=== PATIENT | male | born 1940 | race American Indian/Alaskan Native ===

== ENCOUNTER 2021-09-12 13:18 | Emergency (ER) | payer MEDICARE ==
--- NOTE | 2021-09-12 14:43 | Emergency Department Report ---
Blank Doc - Documentation Documentation: 80-year-old male that presents with flank pain and unable to have bowel and ur inary symptoms. 1- This is a initial triage assessment/medical screening only. Full assessment and work-up will be completed once the patient is in proper hospital gown, ED bed and in a private room setting. This initial assessment/diagnostic orders/clinical plan/ treatment(s) is/are subject to change based on pt's health status, clinical progression and re-assessment by fellow clinical providers in the ED. Further treatment and workup at subsequent clinical providers discretion. Patient/guardians urged not to elope from ED as their condition may be serious if not clinically assessed and managed. 2-labs 3-UA The patient was evaluated in the emergency department for symptoms described in the history of present illness. He/she was evaluated in the context of the global COVID-19 pandemic, which necessitated consideration that the patient might be at risk for infection with the virus that causes COVID-19. Institutional protocols and algorithms that pertain to the evaluation of patie nts at risk for COVID-19 are in a state of rapid change based on information released by regulatory bodies including the CDC and federal and state organizations. These policies and algorithms were followed during the patient's care in the emergency department. Please note that these policies, procedures and recommendations changed on a rapid basis.
[2021-09-12 15:26] LABS: Basophils % (Auto) 0.3 % (0.0-1.8); Eosinophils % (Auto) 0.3 % (0.0-4.3); Hematocrit 43.8 % (35.5-45.6); Hemoglobin 13.8 gm/dl (11.8-15.2); Lymphocytes # (Auto) 1.3 K/mm3 (1.2-5.4); Lymphocytes % (Auto) 22.6 % (13.4-35.0); Mean Corpuscular HGB Conc 32 % (32-34); Mean Corpuscular Volume 77 fl (84-94); Monocytes # (Auto) 0.4 K/mm3 (0.0-0.8); Monocytes % (Auto) 7.7 % (0.0-7.3); Platelet Count 120 K/mm3 (140-440); Red Blood Count 5.66 M/mm3 (3.65-5.03); Red Cell Distribution Width 15.2 % (13.2-15.2)
[2021-09-12 15:49] LABS: Alanine Aminotransferase 25 units/L (7-56); Albumin 4.2 g/dL (3.9-5); BUN/Creatinine Ratio 12; Blood Urea Nitrogen 16 mg/dL (9-20); Calcium 9.6 mg/dL (8.4-10.2); Hemolysis Index 5
--- NOTE | 2021-09-12 15:50 | XRay Report ---
ABDOMEN 2 VIEW(S) INDICATION / CLINICAL INFORMATION: abdominal pain, no bm. COMPARISON: None available. FINDINGS: TUBES / LINES: None. BOWEL GAS PATTERN: Moderate distal colonic stool burden with nonobstructive bowel gas pattern. FREE AIR / EXTRALUMINAL GAS: None seen. ADDITIONAL FINDINGS: No significant additional findings. IMPRESSION: 1. Findings most suggestive of constipation. Signer Name: Kulwinder Mclean MD Signed: 09/12/2021 3:45 PM Workstation Name: [id number]
[2021-09-12] MEDS ORDERED: MAGNESIUM CITRATE 300 ML ORAL LIQD PO ONE (15:55)
[2021-09-12 16:00] LABS: Bilirubin,Urine Negative (Negative); Blood,Urine Trace (Negative); Color,Urine Yellow (Yellow); Mucus,Urine FEW /HPF
[2021-09-12 16:01] LABS: PH,Urine 6.5 (5.0-7.0); Urobilinogen,Urine < 2.0 mg/dL (<2.0)
[2021-09-12] MEDS ORDERED: INSULIN REGULAR, HUMAN 100 UNITS/1 ML IV ONE (16:28)
[2021-09-12] MEDS ORDERED: SODIUM CHLORIDE 0.9% 1000 ML 1,000 ML IV ONE (16:28)
--- NOTE | 2021-09-12 18:46 | Emergency Department Report ---
ED Abdominal Pain HPI - General Chief Complaint: Urogenital-Male Stated Complaint: HAVING PROBLEMS DEFECTIING Time Seen by Provider: 09/12/21 14:41 Source: patient Mode of arrival: Ambulatory Limitations: No Limitations - History of Present Illness Initial Comments: 80-year-old black female with a past medical history of hypertension and diabetes presents emergency department for evaluation of lower abdominal pain. He states that he has not been able to have a bowel movement for 2 days which is abnormal for him. He denies fever, nausea, vomiting. MD Complaint: abdominal pain -: Gradual, days(s) (2) Radiation: none Migration to: no migration Severity scale (0 -10): 5 Quality: aching Consistency: constant Associated Symptoms: constipation. denies: nausea, vomiting, fever, chills, dysuria, hematemesis, hematochezia, melena, hematuria, anorexia, syncope - Related Data Allergies Allergy/AdvReac Type Severity Reaction Status Date / Time No Known Allergies Allergy Unverified 06/13/14 11:14 ED Review of Systems ROS: Stated complaint: HAVING PROBLEMS DEFECTIING Other details as noted in HPI Comment: All other systems reviewed and negative Constitutional: denies: chills, fever, malaise, weakness Respiratory: denies: shortness of breath Cardiovascular: denies: chest pain, palpitations Gastrointestinal: abdominal pain, constipation. denies: nausea, vomiting, diarrhea, hematemesis, melena, hematochezia Musculoskeletal: denies: back pain Skin: denies: rash Neurological: denies: headache, weakness ED Past Medical Hx - Past Medical History Hx Hypertension: Yes Hx Diabetes: Yes Additional medical history: tinnitus - Surgical History Hx Coronary Stent: Yes (x2) - Social History Smoking Status: Former Smoker Substance Use Type: Alcohol ED Physical Exam - General Limitations: No Limitations General appearance: alert, in no apparent distress - Head Head exam: Present: atraumatic, normocephalic - Eye Eye exam: Present: normal appearance. Absent: conjunctival injection - ENT ENT exam: Present: normal exam - Neck Neck exam: Present: normal inspection. Absent: tenderness, lymphadenopathy - Respiratory Respiratory exam: Present: normal lung sounds bilaterally. Absent: respiratory distress, wheezes, rales, rhonchi, stridor, chest wall tenderness - Cardiovascular Cardiovascular Exam: Present: tachycardia, normal heart sounds - GI/Abdominal GI/Abdominal exam: Present: soft, normal bowel sounds. Absent: distended, tenderness, guarding, rebound, rigid - Extremities Exam Extremities exam: Present: normal inspection, full ROM, normal capillary refill. Absent: tenderness, pedal edema, joint swelling, calf tenderness - Back Exam Back exam: Present: normal inspection. Absent: CVA tenderness (R), CVA tenderness (L) - Neurological Exam Neurological exam: Present: alert, oriented X3, normal gait - Psychiatric Psychiatric exam: Present: normal affect, normal mood - Skin Skin exam: Present: warm, dry, intact, normal color ED Course Vital Signs 09/12/21 09/12/21 13:51 18:52 Temperature 97.4 F L 98.4 F Pulse Rate 110 H 74 Respiratory 18 20 Rate Blood Pressure 174/90 134/78 [Left] O2 Sat by Pulse 99 98 Oximetry - Reevaluation(s) Reevaluation #1: 09/12/21 18:42 Patient states that he had a large bowel movement while in the department and abdominal pain has totally resolved. ED Medical Decision Making - Lab Data Result diagrams: 09/12/21 14:55 09/12/21 14:55 - Radiology Data Radiology results: report reviewed, image reviewed KUB: FINDINGS: TUBES / LINES: None. BOWEL GAS PATTERN: Moderate distal colonic stool burden with nonobstructive bowel gas pattern. FREE AIR / EXTRALUMINAL GAS: None seen. ADDITIONAL FINDINGS: No significant additional findings. IMPRESSION: 1. Findings most suggestive of constipation. - Medical Decision Making 80-year-old black female with a past medical history of hypertension and diabetes presents emergency department for evaluation of lower abdominal pain. He states that he has not been able to have a bowel movement for 2 days which is abnormal for him. He denies fever, nausea, vomiting. Physical exam unremarkable. KUB shows constipation, but patient had large BM while in department and states that abdominal pain has resolved. Patient noted to have elevated bg but anion gap and venous PH were wnl. After further interview, patient states that his bg was also elevated yesterday and he forgot to take his metformin the past few days. He received one liter NS along with 10 units of regular insulin IV, and BG improved. He will be discharged home to follow up with his pcp and encouraged to take his BG medication as prescribed. He is advised to return to ED as needed. He verbalized understanding of and a greement with plan of care. Critical care attestation.: If time is entered above; I have spent that time in minutes in the direct care of this critically ill patient, excluding procedure time. ED Disposition Clinical Impression: Hyperglycemia Constipation Qualifiers: Constipation type: unspecified constipation type Qualified Code(s): K59.00 - Constipation, unspecified Disposition: 01 HOME / SELF CARE / HOMELESS Is pt being admited?: No Does the pt Need Aspirin: No Condition: Stable Instructions: Constipation, Adult, Hyperglycemia, [id number] Additional Instructions: Take medications as previously prescribed. Follow-up with primary care provider regarding elevated blood glucose. Return to the emergency department as needed. Referrals: MEME ACUNA MD [Staff Physician] - 3-5 Days LUIS RENAE MD [Referring] - 3-5 Days BEV GALVAN MD [Consulting Physician] - 3-5 Days Time of Disposition: 18:46
[2021-09-12 18:53] VITALS: BP 134/78
== END 2021-09-12 18:52 | disposition home or self-care (01) ==
LOC: ED 13:18
DX: K59.00 Constipation, unspecified (principal); E11.65 Type 2 diabetes mellitus with hyperglycemia; I10 Essential (primary) hypertension; Z87.891 Personal history of nicotine dependence; Z79.899 Other long term (current) drug therapy
CPT/HCPCS: 36415; 74018; 80053; 81001; 82805; 82962; 85025; 87086; 96361; 96374; 99284; J7030; Q9967; J1815